=== PATIENT | female | born 1945 | race Caucasian/White ===

== ENCOUNTER → 2019-07-30 | Outpatient (CLI) | payer MEDICARE, OTHER ==
[~2019-07-30] MED LIST: ASPI-650 PO; ASPI81TA45 PO; ATOR40TA78 PO; CLOP75TA PO; IBUP200C8 PO; METF500T17 PO; METO25TA35 PO; MOEX7.5T2 PO; MULT-658 PO
[2019-07-30 11:37] LABS: BASOPHILS # (AUTO) 0.04 x10^3/uL (0-0.1); BASOPHILS % (AUTO) 0 % (0-1); EOSINOPHILS # (AUTO) 0.15 x10^3/uL (0-0.4); EOSINOPHILS % (AUTO) 2 % (1-7); LYMPHOCYTES # (AUTO) 2.88 x10^3/uL (1-3.4); LYMPHOCYTES % (AUTO) 31 % (22-44); MD NO; MEAN CORPUSCULAR HEMOGLOBIN 31.6 pg (27.0-34.8); MEAN CORPUSCULAR HGB CONC 33.7 g/dL (32.4-35.8); MEAN CORPUSCULAR VOLUME 93.9 fL (80-100); MEAN PLATELET VOLUME 8.8 fL (7.4-10.4); MONOCYTES # (AUTO) 0.76 x10^3/uL (0.2-0.8); MONOCYTES % (AUTO) 8 % (2-9); NEUTROPHILS % (AUTO) 59 % (42-75); PLATELET COUNT 139 x10^3/uL (130-400); RED BLOOD COUNT 4.57 x10^6/uL (3.82-5.3); RED CELL DISTRIBUTION WIDTH 13.5 % (9.6-15.2)
[2019-07-30 11:40] LABS: CULTURE INDICATED? YES; MICROSCOPIC AUTO
[2019-07-30 11:46] LABS: ALANINE AMINOTRANSFERASE 30 U/L (12-78); ALBUMIN 3.6 g/dL (3.4-5.0); ANION GAP 7 mmol/L (5-15); CHLORIDE 110 mmol/L (98-107)
[2019-07-30 11:49] LABS: ALKALINE PHOSPHATASE 75 U/L (45-117); BILIRUBIN,TOTAL 0.8 mg/dL (0.2-1.0); CREATININE 0.93 mg/dL (0.55-1.02); TOTAL PROTEIN 7.2 g/dL (6.4-8.2)
[2019-07-30 11:54] LABS: INTERNATIONAL NORMALIZED RATIO 1.01 (0.93-1.1); PROTHROMBIN TIME 10.7 Seconds (9.6-11.5)
== END | disposition home or self-care (01) ==
LOC: STAR 10:06 → MERGE 10:06
PROVIDERS: ATTEND Neurological Surgery
DX: Z01.818 Encounter for other preprocedural examination (principal); I21.09 ST elevation (STEMI) myocardial infarction involving other coronary artery of anterior wall; M48.061 Spinal stenosis, lumbar region without neurogenic claudication; M54.17 Radiculopathy, lumbosacral region; M43.16 Spondylolisthesis, lumbar region; Z95.2 Presence of prosthetic heart valve
CPT/HCPCS: 36415; 71046; 80053; 81001; 85025; 85610; 85730; 87086; 93005

== ENCOUNTER → 2019-08-01 | Outpatient (CLI) | payer MEDICARE, OTHER | END | disposition home or self-care (01) | LOC: MERGE 09:35 → CFH 09:35 | PROVIDERS: ATTEND Neurological Surgery | DX: M47.816 Spondylosis without myelopathy or radiculopathy, lumbar region (principal); M48.061 Spinal stenosis, lumbar region without neurogenic claudication | CPT/HCPCS: 72131 ==

== ENCOUNTER 2019-08-12 11:06 | Inpatient (IN) | payer MEDICARE, OTHER ==
[~2019-08-12] VITALS: Ht 157.5 cm; Wt 105.0 kg
[~2019-08-12 11:06] MED LIST changes: +BACITRACIN 50,000 UNIT ONE; +BUPIVACAINE/PF 0.5% ONE; +CEFAZOLIN 1,000 MG ONE; +DEXAMETHASONE 4 MG/ML, 1ML ONE; +EPINEPHRINE 1 MG/ML, 1ML ONE; +FENTANYL PF 250 MCG/5ML ONE; +ONDANSETRON 2MG/ML, 2ML ONE; +PROPOFOL 10 MG/ML, 20ML ONE; +SUCCINYLCHOLINE 20 MG/ML, 10ML ONE; +VANCOMYCIN 1,000 MG ONE
[2019-08-12] MEDS ORDERED: LACTATED RINGERS 1,000 ML IV SCH (11:28)
[2019-08-12] MEDS ORDERED: ACETAMINOPHEN 500 MG TABLET PO ONE (11:30)
[2019-08-12] MEDS ORDERED: EPHEDRINE 50 MG/ML, 1ML IVPush PRN (12:30)
[2019-08-12] MEDS ORDERED: ONDANSETRON 2MG/ML, 2ML IV PRN ×2 (12:30→18:00)
[2019-08-12] MEDS ORDERED: MEPERIDINE/PF 25MG/ML,1ML IVPush PRN (12:30)
[2019-08-12] MEDS ORDERED: hydrALAzine 20 MG/ML, 1ML IV PRN (12:30)
[2019-08-12] MEDS ORDERED: OXYcodone 5 MG/5 ML ORAL.SOL UDC PO PRN (12:30)
[2019-08-12] MEDS ORDERED: LABETALOL 5MG/ML, 20ML IV PRN (12:30)
[2019-08-12] MEDS ORDERED: PROMETHAZINE 25 MG/ML, 1ML IV PRN (12:30)
[2019-08-12] MEDS ORDERED: GLYCOPYRROLATE 0.2MG/1ML, 5ML ONE (13:02)
[2019-08-12] MEDS ORDERED: PHENYLEPHRINE 10 MG/ML ONE (13:02)
[2019-08-12] MEDS ORDERED: SODIUM CHLORIDE 0.9% PF 10ML ONE (13:16)
[2019-08-12] MEDS ORDERED: LIDOCAINE-MPF 2% ,5ML ONE (13:16)
[2019-08-12] MEDS ORDERED: FENTANYL PF 100 MCG/2ML ONE ×3 (14:40→15:45)
[2019-08-12] MEDS ORDERED: OXYcodone 5 MG/5 ML ORAL.SOL UDC ONE (15:45)
[2019-08-12] MEDS ORDERED: DIAZEPAM 5 MG/ML, 2ML ONE (15:45)
[2019-08-12] MEDS: FENTANYL PF 100 MCG/2ML IV PRN ×2 (15:47→16:02)
[2019-08-12] MEDS: DIAZEPAM 5 MG/ML, 2ML IVPush PRN ×2 (15:58→16:19)
[2019-08-12] MEDS ORDERED: METHOCARBAMOL 1,000 MG in DEXTROSE 5% 100 ML IV ONE (16:00)
[2019-08-12] MEDS ORDERED: METHOCARBAMOL 1000MG/10 ML IVPB ONE (16:00)
[2019-08-12] MEDS ORDERED: HYDROmorphone 1 MG/ML, 1ML INJ ONE ×2 (16:34→16:51)
[2019-08-12] MEDS: HYDROmorphone 1 MG/ML, 1ML INJ IVPush PRN ×4 (16:38→17:04)
[2019-08-12] MEDS ORDERED: PROMETHAZINE 25 MG/ML, 1ML IM PRN (18:00)
[2019-08-12] MEDS ORDERED: HYDROmorphone 2MG TABLET PO PRN (18:00)
[2019-08-12] MEDS ORDERED: DIPHENHYDRAMINE 50 MG/ML, 1ML IM PRN (18:00)
[2019-08-12] MEDS ORDERED: DIPHENHYDRAMINE 50 MG/ML, 1ML IVPush PRN (18:00)
[2019-08-12] MEDS ORDERED: HYDROmorphone 2 MG/ML, 1ML IM PRN (18:00)
[2019-08-12] MEDS ORDERED: DIPHENHYDRAMINE 25 MG CAPSULE PO PRN (18:00)
[2019-08-12] MEDS ORDERED: BISACODYL 10 MG SUPP PR PRN (18:00)
[2019-08-12] MEDS: NS + 20MEQ KCL 1,000 ML IV SCH (18:41)
[2019-08-12 19:16] VITALS: BP 100/66
[2019-08-12] MEDS: INSULIN REGULAR 100 UNITS/ML, 3ML VIAL SQ-INSULIN SCH (20:01)
[2019-08-12] MEDS: OXYcodone/APAP 5/325MG TABLET PO PRN (20:10)
[2019-08-12] MEDS: ATORVASTATIN 40 MG TABLET PO SCH (20:10)
[2019-08-12] MEDS: CEFAZOLIN PMX 1GM/50ML 50 ML IVPB SCH (22:51)
[2019-08-12] MEDS: METHOCARBAMOL 750 MG TABLET PO PRN (22:56)
[2019-08-12 23:48] VITALS: BP 101/64
[2019-08-13] MEDS: OXYcodone/APAP 5/325MG TABLET PO PRN ×4 (00:08→17:29)
[2019-08-13 02:47] VITALS: BP 111/70
[2019-08-13] MEDS: NS + 20MEQ KCL 1,000 ML IV SCH ×3 (04:00→22:48)
[2019-08-13 04:55] LABS: BASOPHILS # (AUTO) 0.01 x10^3/uL (0-0.1); BASOPHILS % (AUTO) 0 % (0-1); EOSINOPHILS % (AUTO) 0 % (1-7); LYMPHOCYTES # (AUTO) 0.89 x10^3/uL (1-3.4); LYMPHOCYTES % (AUTO) 11 % (22-44); MD NO; MEAN CORPUSCULAR HEMOGLOBIN 31.2 pg (27.0-34.8); MEAN CORPUSCULAR HGB CONC 33.3 g/dL (32.4-35.8); MEAN CORPUSCULAR VOLUME 93.8 fL (80-100); MEAN PLATELET VOLUME 9.1 fL (7.4-10.4); MONOCYTES # (AUTO) 0.48 x10^3/uL (0.2-0.8); MONOCYTES % (AUTO) 6 % (2-9); NEUTROPHILS # (AUTO) 6.65 x10^3/uL (1.8-6.8); NEUTROPHILS % (AUTO) 83 % (42-75); PLATELET COUNT 104 x10^3/uL (130-400); RED BLOOD COUNT 3.56 x10^6/uL (3.82-5.3); RED CELL DISTRIBUTION WIDTH 13.5 % (9.6-15.2)
[2019-08-13 05:02] LABS: ANION GAP 9 mmol/L (5-15); CALCIUM 8.5 mg/dL (8.5-10.1); CHLORIDE 106 mmol/L (98-107); CREATININE 1.03 mg/dL (0.55-1.02)
[2019-08-13] MEDS: ENOXAPARIN 40 MG/0.4 ML SQ SCH (06:35)
[2019-08-13] MEDS: METHOCARBAMOL 750 MG TABLET PO PRN ×2 (06:37→19:23)
[2019-08-13] MEDS: INSULIN REGULAR 100 UNITS/ML, 3ML VIAL SQ-INSULIN SCH ×4 (07:00→20:55)
[2019-08-13] MEDS: CEFAZOLIN PMX 1GM/50ML 50 ML IVPB SCH (07:10)
[2019-08-13 07:11] VITALS: BP 119/50
[2019-08-13] MEDS: metFORMIN XR 500 MG TAB.ER.24H PO SCH (08:14)
[2019-08-13] MEDS: SENNA/DOCUSATE TABLET PO SCH (08:15)
[2019-08-13] MEDS: METOPROLOL TARTRATE 25 MG TAB PO SCH (08:15)
[2019-08-13] MEDS: LISINOPRIL 10 MG TABLET PO SCH (08:15)
[2019-08-13 11:13] VITALS: BP 103/70
[2019-08-13 14:27] VITALS: BP 92/55
[2019-08-13 19:20] VITALS: BP 123/72
[2019-08-13] MEDS: ATORVASTATIN 40 MG TABLET PO SCH (20:55)
[2019-08-13] MEDS: HYDROcodone/APAP 5/325 TABLET PO PRN (21:43)
[2019-08-14 01:08] VITALS: BP 106/60
[2019-08-14] MEDS: HYDROcodone/APAP 5/325 TABLET PO PRN ×5 (01:59→19:20)
[2019-08-14] MEDS: ENOXAPARIN 40 MG/0.4 ML SQ SCH (06:04)
[2019-08-14] MEDS: INSULIN REGULAR 100 UNITS/ML, 3ML VIAL SQ-INSULIN SCH ×4 (07:00→22:23)
[2019-08-14] MEDS: METOPROLOL TARTRATE 25 MG TAB PO SCH (07:54)
[2019-08-14] MEDS: metFORMIN XR 500 MG TAB.ER.24H PO SCH (07:54)
[2019-08-14] MEDS: METHOCARBAMOL 750 MG TABLET PO PRN ×2 (07:54→16:51)
[2019-08-14] MEDS: LISINOPRIL 10 MG TABLET PO SCH (07:55)
[2019-08-14] MEDS: SENNA/DOCUSATE TABLET PO SCH (07:55)
[2019-08-14] MEDS: MAGNESIUM HYDROXIDE 8%, 30ML UDC PO PRN (07:56)
[2019-08-14 07:58] VITALS: BP 124/51
[2019-08-14] MEDS ORDERED: CALCIUM CARBONATE 500 MG TAB.CHEW ONE (09:37)
[2019-08-14] MEDS: CALCIUM CARBONATE 500 MG TAB.CHEW PO PRN ×2 (09:39→16:44)
[2019-08-14] MEDS: NS + 20MEQ KCL 1,000 ML IV SCH ×2 (10:00→20:00)
[2019-08-14 15:17] VITALS: BP 117/61
[2019-08-14 20:15] VITALS: BP 129/68
[2019-08-14] MEDS: ATORVASTATIN 40 MG TABLET PO SCH (22:22)
[2019-08-15] MEDS: HYDROcodone/APAP 5/325 TABLET PO PRN ×3 (00:31→10:58)
[2019-08-15 00:33] VITALS: BP 127/72
[2019-08-15] MEDS: NS + 20MEQ KCL 1,000 ML IV SCH (06:00)
[2019-08-15] MEDS: ENOXAPARIN 40 MG/0.4 ML SQ SCH (06:40)
[2019-08-15 06:58] VITALS: BP 125/75
[2019-08-15] MEDS: INSULIN REGULAR 100 UNITS/ML, 3ML VIAL SQ-INSULIN SCH (07:06)
[2019-08-15] MEDS: LISINOPRIL 10 MG TABLET PO SCH (08:07)
[2019-08-15] MEDS: METOPROLOL TARTRATE 25 MG TAB PO SCH (08:07)
[2019-08-15] MEDS: metFORMIN XR 500 MG TAB.ER.24H PO SCH (08:07)
[2019-08-15] MEDS: MAGNESIUM HYDROXIDE 8%, 30ML UDC PO PRN (08:08)
[2019-08-15] MEDS: SENNA/DOCUSATE TABLET PO SCH (08:08)
[2019-08-15] MEDS ORDERED: METH750T87 PO (08:43)
[2019-08-15] MEDS ORDERED: HYDR-3240 PO (08:44)
[2019-08-15 11:30] VITALS: BP 149/80
== END 2019-08-15 12:03 | disposition home or self-care (01) | DRG 454 ==
LOC: ORIP 11:06 → MERGE 13:30 → UNMERGE 13:30 → 4NE 17:47 → DCLOUNGE 08-15 11:52
PROVIDERS: ADMIT Neurological Surgery; ATTEND Neurological Surgery
PROC: 0SG0071 Fusion of Lumbar Vertebral Joint with Autologous Tissue Substitute, Posterior Approach, Posterior Column, Open Approach (ICD-10-PCS; 2019-08-12)
PROC: 01NB0ZZ Release Lumbar Nerve, Open Approach (ICD-10-PCS; 2019-08-12)
PROC: 0SB20ZZ Excision of Lumbar Vertebral Disc, Open Approach (ICD-10-PCS; 2019-08-12)
PROC: 4A11X4G Monitoring of Peripheral Nervous Electrical Activity, Intraoperative, External Approach (ICD-10-PCS; 2019-08-12)
PROC: 0SG00AJ Fusion of Lumbar Vertebral Joint with Interbody Fusion Device, Posterior Approach, Anterior Column, Open Approach (ICD-10-PCS; principal; 2019-08-12 13:30)
DX: M51.16 Intervertebral disc disorders with radiculopathy, lumbar region (principal); Z68.41 Body mass index [BMI] 40.0-44.9, adult; M48.061 Spinal stenosis, lumbar region without neurogenic claudication; M43.16 Spondylolisthesis, lumbar region; E66.01 Morbid (severe) obesity due to excess calories; G47.33 Obstructive sleep apnea (adult) (pediatric); G89.29 Other chronic pain; I10 Essential (primary) hypertension; E78.5 Hyperlipidemia, unspecified; E11.9 Type 2 diabetes mellitus without complications; M19.90 Unspecified osteoarthritis, unspecified site; I83.813 Varicose veins of bilateral lower extremities with pain; Z90.49 Acquired absence of other specified parts of digestive tract; Z98.51 Tubal ligation status
CPT/HCPCS: 36415; 72100; 80048; 82962; 85025; C1713; C1776; G0378; J0171; J0690; J1100; J1170; J1650; J1815; J2405; J2704; J3010; J3360; J3370; J3480; C1763; J0330; J2370; J2800; J7120

== ENCOUNTER → 2020-01-22 | Outpatient (CLI) | payer MEDICARE, OTHER ==
[~2020-01-22] MED LIST changes: -BACITRACIN 50,000 UNIT ONE; -BUPIVACAINE/PF 0.5% ONE; -CEFAZOLIN 1,000 MG ONE; -DEXAMETHASONE 4 MG/ML, 1ML ONE; -EPINEPHRINE 1 MG/ML, 1ML ONE; -FENTANYL PF 250 MCG/5ML ONE; +HYDR-3240 PO; +METH750T87 PO; -ONDANSETRON 2MG/ML, 2ML ONE; -PROPOFOL 10 MG/ML, 20ML ONE; -SUCCINYLCHOLINE 20 MG/ML, 10ML ONE; -VANCOMYCIN 1,000 MG ONE
== END | disposition home or self-care (01) ==
LOC: CFH 11:39
PROVIDERS: ATTEND Internal Medicine Cardiovascular Disease
DX: I08.1 Rheumatic disorders of both mitral and tricuspid valves (principal); I10 Essential (primary) hypertension; E78.5 Hyperlipidemia, unspecified; E11.9 Type 2 diabetes mellitus without complications; I65.29 Occlusion and stenosis of unspecified carotid artery; Z95.2 Presence of prosthetic heart valve; Z86.73 Personal history of transient ischemic attack (TIA), and cerebral infarction without residual deficits
CPT/HCPCS: 93306; 93356